=== PATIENT | male | born 1950 | race Caucasian/White ===

== ENCOUNTER 2019-03-25 10:15 | Emergency (ER) | payer MEDICARE ==
[2019-03-25 10:21] VITALS: BP 134/81; PULSE 76; RESP 18; TEMP 99.1; O2SAT 100
--- NOTE | 2019-03-25 11:01 | C.PDOC ---
History Of Present Illness 68 year old male with ahistory of prostate cancer presents to the emergency department with complaints of rectal/anus pain. Patient denies fever, chills, nausea, vomiting, urinary symptoms. Patient denies bleeding. Time Seen by Provider: 03/25/19 10:25 Chief Complaint (Nursing): GI Problem History Per: Patient History/Exam Limitations: no limitations Onset/Duration Of Symptoms: Days Current Symptoms Are (Timing): Still Present Location Of Pain/Discomfort: Other (rectal) Radiation Of Pain To:: None Quality Of Discomfort: "Pain" Associated Symptoms: denies: Fever, Chills, Nausea, Vomiting, Diarrhea, Constipation, Urinary Symptoms Past Medical History Reviewed: Historical Data, Nursing Documentation, Vital Signs Vital Signs: Last Vital Signs Temp 99.1 F 03/25/19 10:18 Pulse 76 03/25/19 10:18 Resp 18 03/25/19 10:18 BP 134/81 03/25/19 10:18 Pulse Ox 100 03/25/19 10:18 Primary Care Provider: FAMILY PROVIDER,NO - Medical History PMH: HTN Surgical History: No Surg Hx Family History: States: No Known Family Hx - Social History Hx Alcohol Use: No Hx Substance Use: No Review Of Systems Except As Marked, All Systems Reviewed And Found Negative. Constitutional: Negative for: Fever Cardiovascular: Negative for: Chest Pain Respiratory: Negative for: Cough, Shortness of Breath Gastrointestinal: Positive for: Rectal Pain. Negative for: Nausea, Vomiting, Abdominal Pain, Diarrhea Genitourinary: Negative for: Dysuria, Hematuria Physical Exam - Physical Exam Appears: Non-toxic, No Acute Distress Skin: Normal Color, Warm, Dry Head: Atraumatic, Normacephalic Eye(s): bilateral: Normal Inspection, PERRL, EOMI Neck: Normal, Supple Chest: Symmetrical, No Tenderness Gastrointestinal/Abdominal: Soft, No Tenderness, No Guarding, No Rebound Rectal: Normal Exam (Roaster Helper Scribe Ralph), No Hemorrhoids, No Mass, No Other (fissure, masses) Extremity: Normal ROM Neurological/Psych: Oriented x3, Normal Speech, Normal Cognition ED Course And Treatment O2 Sat by Pulse Oximetry: 100 (RA) Pulse Ox Interpretation: Normal Disposition Counseled Patient/Family Regarding: Diagnosis, Need For Followup - Disposition Disposition: HOME/ ROUTINE Disposition Time: 10:57 Condition: GOOD Additional Instructions: LYNNETTE BAEZ, thank you for letting us take care of you today. Your provider was Bessie Carter MD and you were treated for POSSIBLE GI PROBLEM. The emergency medical care you received today was directed at your acute symptoms. If you were prescribed any medication, please fill it and take as directed. It may take s everal days for your symptoms to resolve. Return to the Emergency Department if your symptoms worsen, do not improve, or if you have any other problems. Please contact your doctor for a follow up appointment in 2 days. Bring any paperwork you were given at discharge with you along with any medications you are taking to your follow up visit. Our treatment cannot replace ongoing medical care by a primary care provider outside of the emergency department. Thank you for allowing the [facility] team to be part of your care today. Prescriptions: Hydrocortisone 2.5% (Rectal) [Anusol-HC] [address] DAILY #1 tube Instructions: Hemorrhoids (DC) Forms: [employer] [facility] ([place]), General Discharge Instructions - POA Present On Arrival: None - Clinical Impression Clinical Impression: Rectal pain - Scribe Statement The provider has reviewed the documentation as recorded by the Scribe (Ralph Crooks) Provider Attestation: All medical record entries made by the Scribe were at my direction and personally dictated by me. I have reviewed the chart and agree that the record accurately reflects my personal performance of the history, physical exam, medical decision making, and the department course for this patient. I have also personally directed, reviewed, and agree with the discharge instructions and disposition.
== END 2019-03-25 11:12 | disposition home or self-care (01) ==
LOC: C.ER 10:15
DX: K62.89 Other specified diseases of anus and rectum (principal); I10 Essential (primary) hypertension